=== PATIENT | female | born 1990 | race Caucasian/White ===

== ENCOUNTER 2016-07-31 15:28 | Emergency (ER) | payer OTHER ==
[~2016-07-31] VITALS: Ht 157.5 cm; Wt 67.3 kg
[~2016-07-31 15:28] MED LIST: CLARITIN,ALAVAR10 MG PO; ENDOCET 5-3251 EACH PO; IBUPROFEN800 MG PO; MOTRIN600 MG PO; MOTRIN800 MG PO; Natalcare Rx,Pramile PO; Zoloft PO
[2016-07-31 16:14] LABS: ADD MIUA? YES; BILIRUBIN NEGATIVE; BLOOD LARGE; COLOR AMBER ((YELLOW)); GLUCOSE (STRIP) NEGATIVE; KETONES NEGATIVE; LEUKOCYTES MODERATE; NITRITE NEGATIVE; PROTEIN (STRIP) 100; SPECIFIC GRAVITY 1.017 (1.000-1.030); UROBILINOGEN 0.2 MG/DL (0.2-1.0)
[2016-07-31 16:45] LABS: UCUL ADDED? YES
[2016-07-31 17:07] LABS: HEMATOCRIT 39.7 % (36.0-46.0); MCH 30.3 PG (29.0-34.0); MCHC 34.8 G/DL (30.0-36.0); MCV 87.1 FL (83-99); MEAN PLAT.VOLUME 9.7 uM^3 (9.5-12.4); PLATELET COUNT 237 K/uL (156-360); RBC DIS.WIDTH-CV 11.8 % (11.8-14.6); RBC DIS.WIDTH-SD 37.7 % (39-53); RED BLOOD COUNT 4.56 M/uL (3.80-5.20); WHITE BLOOD COUNT 6.9 K/uL (4.1-10.2)
[2016-07-31 17:19] LABS: CHLORIDE 105 mEq/L (99-109); POTASSIUM 3.9 mEq/L (3.7-5.4); SODIUM 138 mEq/L (136-147)
[2016-07-31 17:21] LABS: GLUCOSE 113 mg/dL (70-99)
[2016-07-31 17:22] LABS: ANION GAP 9 MEQ/L (2-14)
[2016-07-31 17:23] LABS: TOTAL BILIRUBIN 0.2 mg/dL (0.0-1.0)
[2016-07-31 17:24] LABS: ALKALINE PHOSPHATASE 44 IU/L (3-129)
[2016-07-31 17:25] LABS: GFR ESTIMATE (CALCULATED) > 59 mL/min/
[2016-07-31 17:26] LABS: UREA NITROGEN (BUN) 13 mg/dL (9-23)
[2016-07-31] MEDS ORDERED: MOTRIN800 MG PO (18:08)
[2016-07-31] MEDS ORDERED: BACTRIM,SEPT1 TABLET PO (18:08)
[2016-07-31] MEDS ORDERED: PYRIDIUM200 MG PO (18:08)
[2016-07-31 18:58] VITALS: BP 113/78
== END 2016-07-31 18:59 | disposition home or self-care (01) ==
LOC: EXP 15:28 → EME 15:28 → EXP 18:59
PROVIDERS: Nurse Practitioner Family
DX: N39.0 Urinary tract infection, site not specified (principal); Z87.440 Personal history of urinary (tract) infections
CPT/HCPCS: 76856; 80053; 81003; 85027; 99281; 99284

== ENCOUNTER 2016-08-03 11:48 | Emergency (ER) | payer OTHER ==
[~2016-08-03] VITALS: Ht 157.5 cm; Wt 67.0 kg
[~2016-08-03 11:48] MED LIST changes: +BACTRIM,SEPT1 TABLET PO; +PYRIDIUM200 MG PO
[2016-08-03 13:57] LABS: ADD MIUA? YES; BILIRUBIN NEGATIVE; BLOOD MODERATE; COLOR AMBER ((YELLOW)); GLUCOSE (STRIP) NEGATIVE; KETONES 5; LEUKOCYTES NEGATIVE; NITRITE POSITIVE; PROTEIN (STRIP) NEGATIVE; SPECIFIC GRAVITY 1.013 (1.000-1.030)
[2016-08-03 14:00] LABS: BACTERIA RARE /HPF; EPITHELIAL CELLS RARE /HPF; MUCUS NONE SEEN /LPF; RED BLOOD CELLS 0-5 /HPF (0-5); WHITE BLOOD CELLS 0-5 /HPF (0-5)
[2016-08-03 14:24] LABS: HEMATOCRIT 42.1 % (36.0-46.0); MCH 30.3 PG (29.0-34.0); MCHC 35.4 G/DL (30.0-36.0); MCV 85.6 FL (83-99); MEAN PLAT.VOLUME 9.4 uM^3 (9.5-12.4); PLATELET COUNT 222 K/uL (156-360); RBC DIS.WIDTH-CV 11.8 % (11.8-14.6); RBC DIS.WIDTH-SD 36.6 % (39-53); RED BLOOD COUNT 4.92 M/uL (3.80-5.20); WHITE BLOOD COUNT 6.4 K/uL (4.1-10.2)
[2016-08-03 14:39] LABS: CHLORIDE 109 mEq/L (99-109); POTASSIUM 3.8 mEq/L (3.7-5.4); SODIUM 137 mEq/L (136-147)
[2016-08-03 14:41] LABS: GLUCOSE 107 mg/dL (70-99)
[2016-08-03 14:42] LABS: ANION GAP 9 MEQ/L (2-14)
[2016-08-03 14:45] LABS: ALKALINE PHOSPHATASE 45 IU/L (3-129); GFR ESTIMATE (CALCULATED) > 59 mL/min/
[2016-08-03 14:46] LABS: UREA NITROGEN (BUN) 8 mg/dL (9-23)
[2016-08-03 14:48] LABS: LIPASE 41 U/L (1.0-51.0)
[2016-08-03 14:54] LABS: TOTAL BILIRUBIN 0.4 mg/dL (0.0-1.0)
[2016-08-03 14:55] LABS: QUANTITATIVE HCG < 4.0 MIU/ML
[2016-08-03] MEDS ORDERED: ZOFRAN ODT4 MG PO (16:31)
[2016-08-03 16:47] VITALS: BP 102/80
== END 2016-08-03 16:48 | disposition home or self-care (01) ==
LOC: EME 11:48
PROVIDERS: Nurse Practitioner Family
DX: N39.0 Urinary tract infection, site not specified (principal); E86.0 Dehydration
CPT/HCPCS: 74176; 80053; 81003; 83690; 84702; 85027; 99281; 99284; J0696; J1885; J7030; J7050